=== PATIENT | male | born 1990 | race Caucasian/White ===

== ENCOUNTER 2017-05-11 10:42 | Emergency (ER) | payer OTHER ==
[~2017-05-11] VITALS: Ht 182.9 cm; Wt 80.0 kg
[2017-05-11 10:44] VITALS: TEMP 36.6; Ht 182.9 cm; Wt 80.0 kg
[2017-05-11] MEDS ORDERED: IBUP-1050 PO (10:58)
--- NOTE | 2017-05-11 11:33 | DIAGNOSTIC IMAGING REPORT ---
L-SPINE MIN 4 VIEWS ROUTINE HISTORY: 26 years-old Male R low back pain, s/p heavy lifting acute right-sided low back pain status post lifting injury COMPARISON: None available TECHNIQUE: 5 views of the lumbar spine FINDINGS: There is no spondylolysis or spondylolisthesis. No acute fracture, subluxation or significant degenerative changes. There is mild straightening of the normal lumbar lordosis. Soft tissues are unremarkable. IMPRESSION: No acute fracture, subluxation or significant degenerative changes. The above report was generated using voice recognition software. It may contain grammatical, syntax or spelling errors. Electronically signed by: Evaristo Pichardo M.D. 05/11/2017 11:32 AM Dictated Date/Time: 05/11/2017 11:31 AM
--- NOTE | 2017-05-11 12:46 | DIAGNOSTIC IMAGING REPORT ---
LUMBAR SPINE W/O CONTRAST CLINICAL HISTORY: 26 years-old Male with Low back pain, numbness, Incontinent of stool. Acute low back pain with stool incontinence COMPARISON: Lumbar spine radiographs of same day TECHNIQUE: Multiplanar, multi sequence MRI of the lumbar spine was performed without intravenous contrast. FINDINGS: The large oxucs-ou-decm edge bonder localizer images demonstrate no gross abnormality of the imaged abdomen or pelvis. No aortic aneurysm or adenopathy identified. Signal within the imaged thoracic spinal cord is unremarkable. Conus medullaris terminates at the T12-L1 level. The cauda equina appear to be within normal limits. There is no focal bone marrow edema, acute fracture or subluxation. 1.5 cm ovoid T2 hyperintense structure adjacent to the S1-S2 right neuroforamen suggests Tarlov cyst. T12-L1: No central canal or neural foraminal stenosis. L1-L2: No central canal or neural foraminal stenosis. L2-L3: No central canal or neural foraminal stenosis. L3-L4: No central canal or neural foraminal stenosis. L4-L5: No central canal or neural foraminal stenosis. L5-S1: Minimal posterior intervertebral disc space narrowing with small posterior disc bulge. No disc protrusion or extrusion. No significant central canal or foraminal narrowing. IMPRESSION: 1. Minimal posterior intervertebral disc space narrowing with small posterior disc bulge at L5-S1. No significant degenerative changes are noted throughout the remainder of the lumbar spine. 2. No significant central canal or foraminal narrowing. 3. No focal bone marrow edema, acute fracture or subluxation. The above report was generated using voice recognition software. It may contain grammatical, syntax or spelling errors. Electronically signed by: Evarisot Pichardo M.D. 05/11/2017 12:45 PM Dictated Date/Time: 05/11/2017 12:38 PM
--- NOTE | 2017-05-11 12:57 | EMERGENCY ROOM VISIT NOTE ---
History First contact with patient: 10:59 Chief Complaint: BACK PAIN Stated Complaint: BACK PAIN LOWER RIGHT History of Present Illness The patient is a 26 year old male who presents to the Emergency Room via private vehicle with complaints of "back pain, lower right ankle. The patient states that yesterday he was performing an exercise where he was reclined, and was performing triceps workouts overhead. He went to sit up and then felt/ heard a pop in his lower back. He notes that it is favoring the right side. He rates his overall pain as an 8/10. He has tried ibuprofen without relief. He notes an episode of fecal incontinence yesterday. He also notes that his back was numb and he attempted to press the muscles to see if this was his etiology and notes that he could barely feel his back secondary to being numb. He has no history of this. He denies any urinary complaints. He notes pain radiating down the right leg when he walks. No urinary incontinence. Review of Systems A complete 10-point Review of Systems was discussed with the patient, with pertinent positives and negatives listed in the History of Present Illness. All remaining Review of Systems questions can be considered negative unless otherwise specified. Past Medical/Surgical History No pertinent. Family History No pertinent. Social History Patient is employed and lives locally. Current/Historical Medications Scheduled Cyclobenzaprine Hcl (Flexeril), 5 MG PO TID Ibuprofen (Advil), 200 MG PO UD Methylprednisolone (Medrol Dosepak), 0 PO DAILY Scheduled PRN Hydrocodone/Acetaminophen 5MG/325MG ([place]wood 5MG/325MG), 1-2 TABLET PO Q6 PRN for Pain Physical Exam Vital Signs Date Time Temp Pulse Resp B/P (MAP) Pulse Ox O2 Delivery O2 Flow Rate FiO2 05/11/17 13:21 76 18 139/73 98 05/11/17 12:55 76 18 139/73 98 Room Air 05/11/17 10:44 36.6 87 16 143/83 98 Physical Exam VITAL SIGNS - Vital signs and nursing notes were reviewed. Stable. GENERAL -26-year-old male appearing his stated age who is in no acute distress. Communicates well with provider and answers questions appropriately. SKIN - Without rashes. No petechial rashes. No bruising. The skin overlying the spine is unremarkable. NECK - Neck with FROM. No nuchal rigidity. ABDOMEN - Abdominal contour normal without pulsations or visible masses. No abdominal tenderness. MUSCULOSKELETAL: No reproducible spinal or muscular tenderness in the lumbar spine. Movement about the spine is slowed in the lumbar region. EXTREMITIES -patella reflexes difficult to elicit. +5/5 strength noted in UE/ LE bilaterally. NEUROLOGIC - Cranial nerves II through XII grossly intact. Medical Decision & Procedures ER Provider Diagnostic Interpretation: L-SPINE MIN 4 VIEWS ROUTINE HISTORY: 26 years-old Male R low back pain, s/p heavy lifting acute right-sided low back pain status post lifting injury COMPARISON: None available TECHNIQUE: 5 views of the lumbar spine FINDINGS: There is no spondylolysis or spondylolisthesis. No acute fracture, subluxation or significant degenerative changes. There is mild straightening of the normal lumbar lordosis. Soft tissues are unremarkable. IMPRESSION: No acute fracture, subluxation or significant degenerative changes. The above report was generated using voice recognition software. It may contain grammatical, syntax or spelling errors. Electronically signed by: Evaristo Pichardo M.D. 05/11/2017 11:32 AM Dictated Date/Time: 05/11/2017 11:31 AM LUMBAR SPINE W/O CONTRAST CLINICAL HISTORY: 26 years-old Male with Low back pain, numbness, Incontinent of stool. Acute low back pain with stool incontinence COMPARISON: Lumbar spine radiographs of same day TECHNIQUE: Multiplanar, multi sequence MRI of the lumbar spine was performed without intravenous contrast. FINDINGS: The large omkuo-an-tfhc branch chief localizer images demonstrate no gross abnormality of the imaged abdomen or pelvis. No aortic aneurysm or adenopathy identified. Signal within the imaged thoracic spinal cord is unremarkable. Conus medullaris terminates at the T12-L1 level. The cauda equina appear to be within normal limits. There is no focal bone marrow edema, acute fracture or subluxation. 1.5 cm ovoid T2 hyperintense structure adjacent to the S1-S2 right neuroforamen suggests Tarlov cyst. T12-L1: No central canal or neural foraminal stenosis. L1-L2: No central canal or neural foraminal stenosis. L2-L3: No central canal or neural foraminal stenosis. L3-L4: No central canal or neural foraminal stenosis. L4-L5: No central canal or neural foraminal stenosis. L5-S1: Minimal posterior intervertebral disc space narrowing with small posterior disc bulge. No disc protrusion or extrusion. No significant central canal or foraminal narrowing. IMPRESSION: 1. Minimal posterior intervertebral disc space narrowing with small posterior disc bulge at L5-S1. No significant degenerative changes are noted throughout the remainder of the lumbar spine. 2. No significant central canal or foraminal narrowing. 3. No focal bone marrow edema, acute fracture or subluxation. The above report was generated using voice recognition software. It may contain grammatical, syntax or spelling errors. Electronically signed by: Evaristo Pichardo M.D. 05/11/2017 12:45 PM Dictated Date/Time: 05/11/2017 12:38 PM Medical Decision Patient was seen and evaluated as above. He presents to us today with low back pain. He is nontoxic on exam. X-rays were obtained. Results as above. He declined pain medication. He presents to us today with low back pain, pain radiating down the right leg, decreased patellar reflexes bilaterally, note of numbness in the low back yesterday to the point where he was unable to appreciate touch, and also fecal incontinence yesterday. Because of this I believe that an MRI is warranted. This was performed. Results as above. There is a disc bulge. This is consistent with his symptoms. No evidence of cauda equina. Case discussed with attending. NORCO for pain, flexeril for muscle spasm and Medrol Dosepak for disc bulge with radicular symptoms. He is to follow with dairy equipment specialist if no improvement. He is to acquire a family doctor. He is to return with worsening. No red flags in the PDMP. The patient was educated upon management, had questions answered prior to discharge , and was discharged home in good condition. He is to follow regarding the incidentals of the MRI as well. In the evaluation and treatment of this patient the following differential diagnoses were entertained: Fracture, dislocation, cauda equina syndrome, among others. Impression Primary Impression: Low back pain Additional Impressions: Tarlov cyst Bulging lumbar disc Departure Information Dispostion Home / Self-Care Condition GOOD Prescriptions Hydrocodone/Acetaminophen 5MG/325MG ([place] 5MG/325MG) Tab 1-2 TABLET PO Q6 Y for Pain, #15 TAB For Initial Treatment Prov: Mumtaz Allan, COREY 05/11/17 Cyclobenzaprine Hcl (FLEXERIL) 5 Mg Tab 5 MG PO TID for 5 Days, #15 TAB PRN Prov: Mumtaz Allan PA-C 05/11/17 Methylprednisolone (MEDROL DOSEPAK) 4 Mg Xu 0 PO DAILY, #1 PKT Prov: Mumtaz Allan PA-C 05/11/17 Referrals No Doctor, Assigned (PCP) Alfred Gracia, DO Patient Instructions My [facility] Additional Instructions You have been treated in the Emergency Department for Back Pain You have been prescribed NORCO to be used for pain control. This is a narcotic medication. You cannot drive or consume alcohol while on this medicine. This medicine should only be used for pain that cannot be controlled with over-the- counter pain medicines. You have been prescribed Flexeril (cyclobenzaprine) 1-2 tabs orally, three times per day. Do NOT exceed 30 mg (6 tabs) per day. Take your first dose at bedtime as it can make you drowsy. Always take all medications as prescribed. You have been prescribed a Medrol Dosepak. Take this medication as prescribed. You should take the COMPLETE 6-day course of this medication. This is an anti- inflammatory medicine that will help to minimize your symptoms. For pain control, you can use the following byez-qbl-mqoyadc medicines (if >12 yo): - Regular strength (325mg/tab) Tylenol (acetaminophen) 2 tabs every 4-6 hours as needed. Do not exceed 12 tablets in a 24 hour period. Avoid taking more than 3 grams (3000 mg) of Tylenol per day. This includes any other sources of acetaminophen you may take on a regular basis. (PLEASE DO NOT TAKE WITH NORCO) - Regular strength (200 mg/tab) Advil (ibuprofen) 1-2 tabs every 4-6 hours as needed. Do not exceed a dose of 3200 mg per day. If this is an acute injury, ice can be applied to the area of pain for the first 3 days to help decrease pain and inflammation. After the first 3 days, a heating pad can be used over the area for continued soothing relief. You should schedule a follow-up appointment in 2-3 days with your Primary Care Provider for further evaluation and treatment of your back pain or the dairy equipment specialist (Dr. Gracia) You should discuss the tarlov cyst indicated on MRI and the disc buldge. Return to the Emergency Department if your current symptoms worsen despite treatment course outlined above, or if you develop any of the following symptoms : intractable pain despite aforementioned treatment course, loss of control of your bowel or bladder, numbness or tingling in your groin, or development of a fever. LUMBAR SPINE W/O CONTRAST CLINICAL HISTORY: 26 years-old Male with Low back pain, numbness, Incontinent of stool. Acute low back pain with stool incontinence COMPARISON: Lumbar spine radiographs of same day TECHNIQUE: Multiplanar, multi sequence MRI of the lumbar spine was performed without intravenous contrast. FINDINGS: The large awsfh-mv-rydv branch chief localizer images demonstrate no gross abnormality of the imaged abdomen or pelvis. No aortic aneurysm or adenopathy identified. Signal within the imaged thoracic spinal cord is unremarkable. Conus medullaris terminates at the T12-L1 level. The cauda equina appear to be within normal limits. There is no focal bone marrow edema, acute fracture or subluxation. 1.5 cm ovoid T2 hyperintense structure adjacent to the S1-S2 right neuroforamen suggests Tarlov cyst. T12-L1: No central canal or neural foraminal stenosis. L1-L2: No central canal or neural foraminal stenosis. L2-L3: No central canal or neural foraminal stenosis. L3-L4: No central canal or neural foraminal stenosis. L4-L5: No central canal or neural foraminal stenosis. L5-S1: Minimal posterior intervertebral disc space narrowing with small posterior disc bulge. No disc protrusion or extrusion. No significant central canal or foraminal narrowing. IMPRESSION: 1. Minimal posterior intervertebral disc space narrowing with small posterior disc bulge at L5-S1. No significant degenerative changes are noted throughout the remainder of the lumbar spine. 2. No significant central canal or foraminal narrowing. 3. No focal bone marrow edema, acute fracture or subluxation. Problem Qualifiers
[2017-05-11] MEDS ORDERED: HYDR-5688 PO ×2 (13:11→13:13)
[2017-05-11] MEDS ORDERED: METH4PAK PO (13:11)
[2017-05-11] MEDS ORDERED: CYCL5TAB PO (13:11)
[2017-05-11 13:21] VITALS: BP 139/73; PULSE 76; O2SAT 98
== END 2017-05-11 13:21 | disposition home or self-care (01) ==
LOC: C.EDB 10:44 → C.EDD 13:21
DX: M51.16 Intervertebral disc disorders with radiculopathy, lumbar region (principal); G96.19 Other disorders of meninges, not elsewhere classified; M54.5 Low back pain